=== PATIENT | female | born 1985 | race Caucasian/White ===

== ENCOUNTER 2017-06-16 23:26 | Emergency (ER) | payer BC, OTHER ==
[2017-06-16 23:30] VITALS: BP 102/54; PULSE 87; RESP 16; TEMP 97.5; O2SAT 100
[2017-06-16] MEDS ORDERED: SODIUM CHLOR 0.9% 1000 ML INJ 1,000 ML IV ONE (23:40)
[2017-06-16] MEDS ORDERED: SODIUM CHLORIDE 0.9% FLUSH 10 ML FLUSH IVF PRN (23:45)
[2017-06-16 23:55] VITALS: RESP 14; O2SAT 100
--- NOTE | 2017-06-17 00:17 | RADRPT ---
EXAM DATE/TIME: 06/16/2017 23:48 [place] COMPARISON: No previous studies available for comparison. INDICATIONS : Syncope MEDICAL HISTORY : None. SURGICAL HISTORY : None. ENCOUNTER: Initial ACUITY: 1 day PAIN SCORE: 0/10 LOCATION: Bilateral chest FINDINGS: A single view of the chest demonstrates the lungs to be symmetrically aerated without evidence of mas s, infiltrate or effusion. The cardiomediastinal contours are unremarkable. Osseous structures are intact. CONCLUSION: No acute cardiopulmonary process. Donovan Mike MD on June 17, 2017 at 0:15 Board Certified Radiologist. This report was verified electronically.
[2017-06-17 00:26] LABS: AUTOMATED NEUTROPHIL # 6.3 TH/MM3 (1.8-7.7); BASOPHIL # 0.1 TH/MM3 (0-0.2); BASOPHIL % 0.7 % (0.0-2.0); EOSINOPHIL # 0.2 TH/MM3 (0-0.4); EOSINOPHIL % 2.5 % (0.0-4.0); HEMOGLOBIN 14.4 GM/DL (11.6-15.3); LYMPH % 18.4 % (9.0-44.0); LYMPHOCYTE # 1.6 TH/MM3 (1.0-4.8); MEAN CELL VOLUME 88.3 FL (80.0-100.0); MEAN CORPUSCULAR HEMOGLOBIN 30.3 PG (27.0-34.0); MEAN CORPUSCULAR HGB CONC 34.3 % (32.0-36.0); MEAN PLATELET VOLUME 8.5 FL (7.0-11.0); MONO % 6.8 % (0.0-8.0); MONOCYTE # 0.6 TH/MM3 (0-0.9); NEUT % 71.6 % (16.0-70.0); PLATELET COUNT 209 TH/MM3 (150-450); RED BLOOD COUNT 4.75 MIL/MM3 (4.00-5.30); RED CELL DISTRIBUTION WIDTH 13.3 % (11.6-17.2); WHITE BLOOD COUNT 8.7 TH/MM3 (4.0-11.0)
[2017-06-17 00:39] LABS: ALBUMIN 3.5 GM/DL (3.4-5.0); ALKALINE PHOSPHATASE 80 U/L (45-117); ALT (GPT) 15 U/L (10-53); AST (GOT) 18 U/L (15-37); BICARBONATE 19.7 MEQ/L (21.0-32.0); BLOOD UREA NITROGEN 9 MG/DL (7-18); CALCIUM 8.6 MG/DL (8.5-10.1); CHLORIDE 106 MEQ/L (98-107); CREATININE 0.98 MG/DL (0.50-1.00); GLOMERULAR FILTRATION RATE 67 ML/MIN (>89); GLUCOSE,RANDOM 92 MG/DL (74-106); MAGNESIUM 1.8 MG/DL (1.5-2.5); SODIUM (NA) 137 MEQ/L (136-145); TOTAL BILIRUBIN ADULT 0.3 MG/DL (0.2-1.0); TOTAL PROTEIN 7.4 GM/DL (6.4-8.2); TROPONIN I LESS THAN 0.02 NG/ML (0.02-0.05)
--- NOTE | 2017-06-17 00:59 | PD ---
HPI Chief Complaint: Syncope/Near-Syncope Time Seen by Provider: 23:52 Travel History International Travel<30 days: No Contact w/Intl Traveler<30days: No History of Present Illness HPI Patient is a 32-year-old female presents emergency department for evaluation of syncopal episode tonight. Patient states she has had multiple syncopal episodes in the past but "never has lost consciousness before". She is a company by her boyfriend who states she got very flushed just before the event happen and then she was passed out she was lowered to the ground and the police officer booking passed by and took her pulse and then started rescue breathing and she was not breathing. After a few breaths the patient came to when asked what happened. She denies any alcohol ingestion tonight. She denies any chest pain shortness breath abdominal pain nausea vomiting palpitations before the event. She states she has been worked up for these in the past and no definitive cause has been isolated. Symptoms are resolved, moderate, context and associated signs and symptoms as above. [facility] Past Medical History Immunizations Current: Yes ?: Not Past Surgical History Oral Surgery: Yes (12 TOOTH EXTRACTIONS) Social History Alcohol Use: Yes ([facility]) Tobacco Use: No Substance Use: No Allergies-Medications (Allergen,Severity, Reaction): Coded Allergies: Sulfa (Sulfonamide Antibiotics) (Verified Allergy, Unknown, 06/16/17) Reported Meds & Prescriptions Reported Meds & Active Scripts Active No Active Prescriptions or Reported Medications Review of Systems Except as stated in HPI: all other systems reviewed are Neg Physical Exam Narrative GENERAL: Well-developed well-nourished, no obvious distress SKIN: Focused skin assessment warm/dry. HEAD: Atraumatic. Normocephalic. EYES: Pupils equal and round. No scleral icterus. No injection or drainage. ENT: No nasal bleeding or discharge. Mucous membranes pink and moist. Poor dentition NECK: Trachea midline. No JVD. CARDIOVASCULAR: Regular rate and rhythm. No murmur appreciated. RESPIRATORY: No accessory muscle use. Clear to auscultation. Breath sounds equal bilaterally. GASTROINTESTINAL: Abdomen soft, non-tender, nondistended. Hepatic and splenic margins not palpable. MUSCULOSKELETAL: No obvious deformities. No clubbing. No cyanosis. No edema. NEUROLOGICAL: Awake and alert. Cranial nerves II through XII are grossly intact and nonfocal, 5 out of 5 strength in all 4 extremity's PSYCHIATRIC: Appropriate mood and affect; insight and judgment normal. Data Data Last Documented VS Vital Signs Date Time Temp Pulse Resp B/P (MAP) Pulse Ox O2 Delivery O2 Flow Rate FiO2 06/16/17 23:55 16 100 Room Air 06/16/17 23:30 97.5 87 102/54 (70) Orders Orders Electrocardiogram (06/16/17 23:40) Ed Urine Pregnancytest Poc (06/16/17 23:40) Complete Blood Count With Diff (06/16/17 23:40) Comprehensive Metabolic Panel (06/16/17 23:40) Magnesium (Mg) (06/16/17 23:40) Ckmb (Isoenzyme) Profile (06/16/17 23:40) Troponin I (06/16/17 23:40) Urinalysis - C+S If Indicated (06/16/17 23:40) Chest, Single Ap (06/16/17 23:40) Blood Glucose (06/16/17 23:40) Ecg Monitoring (06/16/17 23:40) Iv Access Insert/Monitor (06/16/17 23:40) Oximetry (06/16/17 23:40) Sodium Chloride 0.9% Flush (Ns Flush) (06/16/17 23:45) Sodium Chlor 0.9% 1000 Ml Inj (Ns 1000 M (06/16/17 23:40) Orthostatic Vital Signs (06/16/17 23:40) Ed Discharge Order (06/17/17 03:14) Labs Laboratory Tests Test 06/16/17 23:45 06/17/17 02:10 White Blood Count 8.7 TH/MM3 Red Blood Count 4.75 MIL/MM3 Hemoglobin 14.4 GM/DL Hematocrit 42.0 % Mean Corpuscular Volume 88.3 FL Mean Corpuscular Hemoglobin 30.3 PG Mean Corpuscular Hemoglobin Concent 34.3 % Red Cell Distribution Width 13.3 % Platelet Count 209 TH/MM3 Mean Platelet Volume 8.5 FL Neutrophils (%) (Auto) 71.6 % Lymphocytes (%) (Auto) 18.4 % Monocytes (%) (Auto) 6.8 % Eosinophils (%) (Auto) 2.5 % Basophils (%) (Auto) 0.7 % Neutrophils # (Auto) 6.3 TH/MM3 Lymphocytes # (Auto) 1.6 TH/MM3 Monocytes # (Auto) 0.6 TH/MM3 Eosinophils # (Auto) 0.2 TH/MM3 Basophils # (Auto) 0.1 TH/MM3 CBC Comment DIFF FINAL Differential Comment Blood Urea Nitrogen 9 MG/DL Creatinine 0.98 MG/DL Random Glucose 92 MG/DL Total Protein 7.4 GM/DL Albumin 3.5 GM/DL Calcium Level 8.6 MG/DL Magnesium Level 1.8 MG/DL Alkaline Phosphatase 80 U/L Aspartate Amino Transf (AST/SGOT) 18 U/L Alanine Aminotransferase (ALT/SGPT) 15 U/L Total Bilirubin 0.3 MG/DL Sodium Level 137 MEQ/L Potassium Level 3.0 MEQ/L Chloride Level 106 MEQ/L Carbon Dioxide Level 19.7 MEQ/L Anion Gap 11 MEQ/L Estimat Glomerular Filtration Rate 67 ML/MIN Total Creatine Kinase 63 U/L Troponin I LESS THAN 0.02 NG/ML Urine Color YELLOW Urine Turbidity CLEAR Urine pH 6.0 Urine Specific Aubrey 1.010 Urine Protein NEG mg/dL Urine Glucose (UA) NEG mg/dL Urine Ketones NEG mg/dL Urine Occult Blood NEG Urine Nitrite NEG Urine Bilirubin NEG Urine Urobilinogen LESS THAN 2.0 MG/DL Urine Leukocyte Esterase TRACE Urine RBC LESS THAN 1 /hpf Urine WBC 2 /hpf Urine Squamous Epithelial Cells 2 /hpf Urine Mucus FEW /lpf Microscopic Urinalysis Comment CULT NOT INDICATED MDM Medical Decision Making Medical Screen Exam Complete: Yes Emergency Medical Condition: Yes Differential Diagnosis Syncope, status post respiratory arrest, acute coronary syndrome unlikely, anemia. Narrative Course Patient was room to the emergency department, initial workup negative, observed for several hours in the emergency department has had no symptoms at all while here. Patient is a not history stating "I passed out multiple times before but never lost consciousness". This time by the symphysis presumed to be ruled the patient is low risk discharge and will need to follow-up with a policy officer. I have referred her to one. Holter monitoring I think would be the next appropriate step for her and this was discussed with her. This time is no indication further workup. Diagnosis Primary Impression: Syncope Referrals: Leonard Canas MD Scripts No Active Prescriptions or Reported Meds Jose Santana MD Jun 17, 2017 00:58
[2017-06-17 03:06] LABS: BILIRUBIN, URINE NEG (NEG); BLOOD, URINE NEG (NEG); GLUCOSE,URINE NEG (NEG); KETONE, URINE NEG (NEG); MUCUS URINE FEW /lpf (OCC); NITRITE,URINE NEG (NEG); SQUAMOUS EPITHELIAL CELL URINE 2 /hpf (0-5); URINE COLOR YELLOW (YELLW/STRAW); URINE LEUKOCYTE ESTERASE TRACE (NEG)
--- NOTE | 2017-06-17 12:58 | EKG ---
Date Performed: 06/17/2017 Time Performed: 00:03:30 PTAGE: 32 years EKG: Sinus rhythm WITH SINUS ARRHYTHMIA POSSIBLE RIGHT VENTRICULAR CONDUCTION DELAY NONSPECIFIC T-WAVE ABNORMALITY BOR DERLINE ECG NO PREVIOUS TRACING DOCTOR: Yefri Cruz Interpretating Date/Time 06/17/2017 12:57:40
== END 2017-06-17 04:11 | disposition home or self-care (01) ==
LOC: NEPC 23:26
DX: R55 Syncope and collapse (principal); I49.8 Other specified cardiac arrhythmias; R94.31 Abnormal electrocardiogram [ECG] [EKG]; Z88.2 Allergy status to sulfonamides
CPT/HCPCS: 71045; 80053; 81001; 82550; 83735; 84484; 84703; 85025; 93005; 96360; 96361; 99285; J7030